=== PATIENT | male | born 1965 | race Two or more races ===

== ENCOUNTER 2021-05-07 00:30 | Emergency (ER) | payer SELFPAY ==
[~2021-05-07] VITALS: Ht 182.9 cm; Wt 100.0 kg
[2021-05-07 00:39] VITALS: BP 98/60
[2021-05-07] MEDS ORDERED: IV NORMAL SALINE 1000ML BAG 1,000 ML IV ONE ×2 (00:45→01:15)
--- NOTE | 2021-05-07 00:45 | PHYS DOC ---
Past Medical History Past Surgical History: No Surgical History General Adult EDM: Chief Complaint: ALCOHOL INTOXICATION HPI: HPI: Patient is a 56 year old male with no past medical history presents for evaluation of altered mental status. History obtained from states patient is not a frequent drinker but drank a large amount of tequila this evening. states throughout the night patient's mental status declined and suddenly patient became unresponsive. Patient arrived via EMS. His GCS is 11. He is arousable to deep sternal rub. He is maintaining his airway with an oxygen saturation of 100% on room air. He has no signs of trauma. Review of Systems: Review of Systems: UNABLE TO OBTAIN DUE TO INTOXICATION Heart Score: C/O Chest Pain: N/A Risk Factors: Risk Factors: DM, Current or recent (<one month) smoker, HTN, HLP, family history of CAD, obesity. Risk Scores: Score 0 - 3: 2.5% MACE over next 6 weeks - Discharge Home Score 4 - 6: 20.3% MACE over next 6 weeks - Admit for Clinical Observation Score 7 - 10: 72.7% MACE over next 6 weeks - Early Invasive Strategies Current Medications: Current Medications Medications (Trade) Dose Ordered Sig/Lilly Start Time Stop Time Status Last Admin Dose Admin Sodium Chloride 1,000 ml @ 1,000 mls/hr 1X ONCE 05/07/21 00:45 05/07/21 01:44 UNV Physical Exam: PE: General: alert, no acute distress. Skin: warm, dry and intact, no erythema, no rash. HENT: bilateral external ears normal, oropharynx moist, nose normal. Head:: Normocephalic, atraumatic. Neck: Trachea midline. Eyes: EOMI, Normal conjunctiva, No drainage CARDIOVASCULAR: Regular rate and rhythm RESPIRATORY: No respiratory distress Back: Full range of motion. MUSCULOSKELETAL: Full range of motion of bilateral upper and lower extremities. GASTROINTESTINAL: Abdomen soft without rebound or guarding. NEUROLOGICAL: Decreased level of consciousness, alcohol on breath, intoxicated, arousable to sternal rub Current Patient Data: Vital Signs: Vital Signs Date Time Temp Pulse Resp B/P (MAP) Pulse Ox O2 Delivery O2 Flow Rate FiO2 05/07/21 00:39 90 24 98/60 (73) 96 Room Air 05/07/21 00:35 98.2 98.2 EKG: EKG: [] Performed at 0038 Rate 90 Normal sinus rhythm No ST elevation No ST depression No acute OK Radiology/Procedures: Radiology/Procedures: [] Course & Med Decision Making: Course & Med Decision Making Pertinent Labs and Imaging studies reviewed. (See chart for details) [] Patient was evaluated for chief complaint. Work-up consisted of laboratory analysis. Results reviewed. Patient found to have blood alcohol greater than 300. Patient's blood glucose was greater than 500. Patient's labs not consistent with DKA. Treatment included IV fluids x2 L and insulin subcu 10 units. Patient was observed. Initial plan was to admit patient for further evaluation of hyperglycemia and for sobriety. Patient was observed for greater than 2 hours. Patient then awoke pulled out his IV and requested to be discharged. Patient clinically sober discharged home in the care of his . Patient was prescribed Metformin. Advised to follow-up with primary care physician for further evaluation of hyperglycemia. Bakarion Disclaimer: Dragon Disclaimer: This electronic medical record was generated, in whole or in part, using a voice recognition dictation system. Departure Departure Impression: Primary Impression: Alcohol intoxication Additional Impression: Hyperglycemia Disposition: 01 HOME / SELF CARE / HOMELESS Condition: STABLE Referrals: NO PCP (PCP) Patient Instructions: Alcohol Intoxication, Hyperglycemia Scripts Metformin Hcl (METFORMIN HCL) 500 Mg Tablet 500 MG PO BIDWMEALS for ANTI-DIABETIC, #30 TAB 0 Refills Prov: ELIDA ZARATE DO 05/07/21 ELIDA ZARATE DO May 07, 2021 00:45
[2021-05-07 00:52] LABS: BASO % 1 % (0-3); EOS # 0.2 x10^3/uL (0.0-0.7); EOS % 3 % (0-3); HEMOGLOBIN 14.3 g/dL (13.0-17.5); LYMPH # 2.5 x10^3/uL (1.0-4.8); LYMPH % 37 % (24-48); MEAN CORPUSCULAR HEMOGLOBIN 31 pg (25-35); MEAN CORPUSCULAR HGB CONC 34 g/dL (31-37); MEAN CORPUSCULAR VOLUME 91 fL (79-100); MONO # 0.7 x10^3/uL (0.0-1.1); MONO % 10 % (0-9); NEUT # 3.4 x10^3/uL (1.8-7.7); NEUT % 50 % (31-73); PLATELET COUNT 131 x10^3/uL (140-400); RED BLOOD COUNT 4.62 x10^6/uL (4.30-5.70); RED CELL DISTRIBUTION WIDTH 13.9 % (11.5-14.5); WHITE BLOOD COUNT 6.8 x10^3/uL (4.0-11.0)
[2021-05-07 01:10] LABS: ALBUMIN 3.7 g/dL (3.4-5.0); ALBUMIN/GLOBULIN RATIO 1.1 (1.0-1.7); CALCIUM 9.2 mg/dL (8.5-10.1); CREATININE 0.9 mg/dL (0.7-1.3); POTASSIUM 3.5 mmol/L (3.5-5.1); TOTAL BILIRUBIN 0.1 mg/dL (0.2-1.0); TOTAL PROTEIN 7.1 g/dL (6.4-8.2)
[2021-05-07] MEDS ORDERED: INSULIN,REGULAR 100 UNIT DRIP 100 ML IV ONE (01:15)
[2021-05-07] MEDS ORDERED: INSULIN REGULAR 100 UNIT/ML 3ML VIAL. SQ ONE (03:30)
[2021-05-07] MEDS ORDERED: METF500T16 PO (04:20)
== END 2021-05-07 05:06 | disposition home or self-care (01) ==
LOC: ER 00:30
DX: F10.129 Alcohol abuse with intoxication, unspecified (principal); Y90.9 Presence of alcohol in blood, level not specified; R73.9 Hyperglycemia, unspecified; R41.82 Altered mental status, unspecified
CPT/HCPCS: 36415; 80053; 82962; 85025; 96360; 96361; 96372; 99283; G0480; J1815; J7030